=== PATIENT | male | born 1945 | race Two or more races ===

== ENCOUNTER 2022-01-04 19:59 | Emergency (ER) | payer OTHER ==
[~2022-01-04] VITALS: Ht 177.8 cm; Wt 87.5 kg
[2022-01-04] MEDS ORDERED: ZIAC 5-6.25 MG1 EACH (20:21)
[2022-01-04] MEDS ORDERED: LANOXIN125 MCG (20:21)
[2022-01-04] MEDS ORDERED: LEVOTHYROXINE200 MC1 (20:21)
[2022-01-04] MEDS ORDERED: ATORVASTATIN CA10 MG (20:22)
[2022-01-04] MEDS ORDERED: PRADAXA150 MG (20:23)
[2022-01-04] MEDS ORDERED: NEURONTIN (20:23)
== END 2022-01-04 22:34 | disposition home or self-care (01) ==
LOC: ER 19:59
DX: R42 Dizziness and giddiness (principal); T52.0X1A Toxic effect of petroleum products, accidental (unintentional), initial encounter; Y92.9 Unspecified place or not applicable

== ENCOUNTER 2022-12-24 14:36 | Inpatient (IN) | payer OTHER ==
[~2022-12-24] VITALS: Ht 177.8 cm; Wt 92.1 kg
[~2022-12-24 14:36] MED LIST: ATORVASTATIN CA10 MG; LANOXIN125 MCG; LEVOTHYROXINE200 MC1; NEURONTIN; PRADAXA150 MG; ZIAC 5-6.25 MG1 EACH
--- NOTE | 2022-12-24 15:07 | NUR ---
PACIENTE ALERTA Y ORIENTADO POR LI, ACOMAPANDO DE ESPOSA. ESTA REFIERE TOS, CONGESTION, DOLOR DE PECHO, MOLESTA AL RESPIRAR, FATIGA Y AL TOSER LA FLEMA ES CON LIZ. REFIERE 3 CARUSO CON SINTOMAS.
--- NOTE | 2022-12-24 19:46 | NUR ---
SE REALIZA ADMINISTRACIOND E LAXIS Y SE COLOCA VENTURY MASK AL 40%
--- NOTE | 2022-12-24 21:04 | NUR ---
SE REALIZA NANCIAMADA A SRA SUGGS NO CONTESTA. [id number]
--- NOTE | 2022-12-24 23:01 | NUR ---
SE UBICA A PACIENTE EN AREA DE CHEST PAIN, PACIENTE POR ORDEN DE SU. SE CONECTA A MONITOR CARIDACO, OXIMETRIA Y SE ENTREGA A TANNER POTTS.
[2023-01-10] MEDS ORDERED: IPRATROPIU0.2 MG/1 M IH (15:20)
[2023-01-10] MEDS ORDERED: AMIODARONE HCL200 MG PO (15:21)
[2023-01-10] MEDS ORDERED: ELIQUIS5 MG PO (15:21)
[2023-01-10] MEDS ORDERED: XOPENEX0.63 MG/3 IH (15:21)
[2023-01-10] MEDS ORDERED: LANOXIN125 MCG PO (15:22)
[2023-01-10] MEDS ORDERED: METOPROLOL TAR100 MG PO (15:22)
[2023-01-10] MEDS ORDERED: ATORVASTATIN CA10 MG PO (15:22)
[2023-01-10] MEDS ORDERED: LEVOTHYROXINE125 MCG PO (15:23)
[2023-01-10] MEDS ORDERED: FUROSEMIDE20 MG PO (15:23)
[2023-01-10] MEDS ORDERED: MEDROLPACK PO (15:24)
== END 2023-01-10 18:09 | disposition home or self-care (01) | DRG 291 ==
LOC: ER 14:36 → MEDI 23:21
PROVIDERS: ADMIT Internal Medicine; ATTEND Internal Medicine
PROC: BW24ZZZ Computerized Tomography (CT Scan) of Chest and Abdomen (ICD-10-PCS; 2022-12-24)
PROC: BW24YZZ Computerized Tomography (CT Scan) of Chest and Abdomen using Other Contrast (ICD-10-PCS; 2022-12-25)
PROC: 4A12X4Z Monitoring of Cardiac Electrical Activity, External Approach (ICD-10-PCS; 2022-12-25)
PROC: B24BZZZ Ultrasonography of Heart with Aorta (ICD-10-PCS; 2022-12-25)
PROC: 0W993ZZ Drainage of Right Pleural Cavity, Percutaneous Approach (ICD-10-PCS; principal; 2022-12-29)
PROC: 0W9B3ZZ Drainage of Left Pleural Cavity, Percutaneous Approach (ICD-10-PCS; 2023-01-01)
PROC: BW24ZZZ Computerized Tomography (CT Scan) of Chest and Abdomen (ICD-10-PCS; 2023-01-01)
DX: I11.0 Hypertensive heart disease with heart failure (principal); J16.8 Pneumonia due to other specified infectious organisms; R04.2 Hemoptysis; I50.9 Heart failure, unspecified; I48.91 Unspecified atrial fibrillation; R09.02 Hypoxemia; G47.33 Obstructive sleep apnea (adult) (pediatric); E03.9 Hypothyroidism, unspecified; Z20.822 Contact with and (suspected) exposure to COVID-19
CPT/HCPCS: 71275